=== PATIENT | male | born 1985 | race Caucasian/White ===

== ENCOUNTER 2017-09-22 14:34 | Observation (INO) | payer OTHER ==
--- NOTE | 2017-09-22 15:58 | PDOC ---
History of Present Illness - General Chief Complaint: Chest Pain Stated Complaint: CHEST PAIN Time Seen by Provider: 09/22/17 15:33 History Source: Patient - History of Present Illness Initial Comments: 09/22/17 16:47 32M with hx of annual chest pain presents with left sided chest pain, non radiating, feels like a needle since last night. Also complains of randomly occurring palpitation. Family friend with him, Reports that patient's mother at 30 of myocardial infarction. No insurance so no PCP, no facing slitter. Never had stress test or echo done 09/22/17 17:20 09/22/17 17:28 Past History - Past Medical History Allergies/Adverse Reactions: Allergies Allergy/AdvReac Type Severity Reaction Status Date / Time No Known Allergies Allergy Verified 04/06/14 14:19 Home Medications: Ambulatory Orders No Home Medications 0 dose .ROUTE UTDICT 04/06/14 Cardiac Disorders: Yes (Mother (heart related) @ 33 y/o) COPD: No Thyroid Disease: No - Suicide/Smoking/Psychosocial Hx Smoking History: Never smoked Have you smoked in the past 12 months: No Hx Alcohol Use: No Substance Use Type: None Review of Systems - Review of Systems Able to Perform ROS?: Yes Is the patient limited Burkinan proficient: No Constitutional: No: Symptoms Reported HEENTM: No: Symptoms Reported Respiratory: No: Symptoms reported Cardiac (ROS): Yes: Chest Pain, Palpitations, Chest Tightness ABD/GI: No: Symptoms Reported : No: Symptoms Reported Musculoskeletal: No: Symptoms Reported Integumentary: No: Symptoms Reported Neurological: No: Symptoms reported All Other Systems: Reviewed and Negative *Physical Exam - Vital Signs Last Vital Signs Temp Pulse Resp BP Pulse Ox 98 F 60 18 112/72 98 09/22/17 14:44 09/22/17 17:23 09/22/17 17:23 09/22/17 17:23 09/22/17 17:23 - Physical Exam General Appearance: Yes: Nourished, Appropriately Dressed, Obese. No: Apparent Distress HEENT: positive: EOMI, KAMRAN, Normal ENT Inspection Neck: positive: Trachea midline. negative: Tender Respiratory/Chest: positive: Lungs Clear, Normal Breath Sounds. negative: Chest Tender Cardiovascular: positive: Regular Rhythm, Regular Rate, S1, S2 Gastrointestinal/Abdominal: positive: Normal Bowel Sounds, Soft. negative: Organomegaly Musculoskeletal: positive: Normal Inspection Extremity: positive: Normal Capillary Refill Integumentary: positive: Normal Color, Dry, Warm Neurologic: positive: Fully Oriented, Alert, Normal Mood/Affect, Normal Response , Motor Strength 5/5 Heart Score/ECG Review - History History: Highly suspicious - Electrocardiogram EKG: Normal - Age Age: </= 45 - Risk Factors Risk Factors Heart Score: Yes Positive family hx of cardiac disease, Yes Hx Obesity Based on the list above the patient has:: 1-2 risk factors - Troponin Troponin: </= normal limit - Score Heart Score - Total: 3 ED Treatment Course - LABORATORY CBC & Chemistry Diagram: 09/22/17 15:58 09/22/17 15:58 - ADDITIONAL ORDERS Additional order review: Laboratory Results 09/22/17 09/22/17 15:58 15:58 PT with INR 11.40 INR 1.01 PTT (Actin FS) 34.1 Sodium 140 Potassium 4.0 Chloride 106 Carbon Dioxide 25 Anion Gap 9 BUN 18 D Creatinine 1.0 Creat Clearance w eGFR > 60 Random Glucose 106 D Calcium 8.2 L Total Bilirubin 0.4 D AST 16 ALT 39 Alkaline Phosphatase 82 Creatine Kinase 165 Creatine Kinase Index 0.6 CK-MB (CK-2) < 1.000 Troponin I < 0.02 Total Protein 6.9 Albumin 3.5 09/22/17 15:58 RBC 5.00 MCV 85.4 MCHC 34.1 RDW 12.9 MPV 9.3 Neutrophils % 60.2 Lymphocytes % 30.0 Monocytes % 7.8 Eosinophils % 1.7 Basophils % 0.3 - RADIOLOGY Radiology Studies Ordered: Category Date Time Status CHEST PA & LAT [RAD] Stat Radiology 09/22/17 15:57 Completed Medical Decision Making - Medical Decision Making 09/22/17 17:31 32M with chest pain and family hx of mother who of NC at age 30. EKG: sinus rhythm, normal EKG Cardiac enzymes negative However due to the very suspicious family history, this patient would benefit from an echocardiogram (to r/o HOCM), stress test, Holter monitor placement... Dr. Silverio consulted and Patient admitted to tele-obs under Dr. Spencer. *DC/Admit/Observation/Transfer Diagnosis at time of Disposition: Palpitation, Chest pain - Discharge Dispostion Condition at time of disposition: Stable Admit: Yes Decision to Admit order Date/Time: Decision to Admit Order Category Date Time Status Decision to Admit to Hospital Routine Admission 09/22/17 16:57 Active - Referrals - Patient Instructions - Post Discharge Activity
[2017-09-22 16:28] LABS: BASOPHIL 0.3 % (0-2.0); EOSINOPHIL 1.7 % (0-4.5); MCH 29.1 pg (25.7-33.7); MCHC 34.1 g/dl (32.0-35.9); MEAN CELL VOLUME 85.4 fl (80-96); MEAN PLT VOLUME 9.3 fl (7.5-11.1); NEUTROPHILS 60.2 % (42.8-82.8); PLATELET COUNT 182 K/MM3 (134-434); RDW 12.9 % (11.9-15.9); WHITE BLOOD COUNT 7.6 K/mm3 (4.0-10.0)
[2017-09-22 16:35] LABS: INR 1.01 (0.82-1.09); PROTHROMBIN TIME (PATIENT) 11.4 SEC (9.98-11.88)
[2017-09-22 16:37] LABS: ACTIVATED PTT 34.1 SECONDS (26.9-34.4)
[2017-09-22 16:41] LABS: ALBUMIN 3.5 g/dl (3.4-5.0); ANION GAP 9 (8-16); CALCIUM 8.2 mg/dL (8.5-10.1); CO2 25 mmol/L (21-32); GLUCOSE,RANDOM 106 mg/dL (74-106); SGOT/AST 16 U/L (15-37); SGPT/ALT 39 U/L (12-78)
--- NOTE | 2017-09-22 16:43 | PDOC ---
Attending Attestation - Resident Resident Name: Wallace Beltran - ED Attending Attestation I have performed the following: I have examined & evaluated the patient, The case was reviewed & discussed with the resident, I agree w/resident's findings & plan, Exceptions are as noted - Medical Decision Making 09/22/17 16:39 Vital Signs Temp Pulse Resp BP Pulse Ox 98 F 73 18 145/73 99 09/22/17 14:44 09/22/17 14:44 09/22/17 14:44 09/22/17 14:44 09/22/17 14:44 32 year old male no past medical history presents with chest pressure. States midsternal chest pressure, at times exertional, with associated SOB. Never had stress test as he does not have a doctor. States that his mother suddenly from an [place]. Will most certainly need to [facility]. Chest xray, labs, troponin. Aspirin. Dr. Beltran had consulted cardiology Dr. Juan Silverio. Admit <Riley Weller - Last Filed: 09/22/17 16:44> - HPI HPI: 09/22/17 16:46 32 year old male, with no significant past medical history, who presents to the emergency room complaining of 3 days of midsternal, nonradiating chest pressure that is nonexertional . He also reports palpitations. He notes that his mother from a heart attack when she was 33 years old. - Physicial Exam PE: 09/22/17 16:52 GENERAL: Awake, alert, and fully oriented, in no acute distress HEAD: No signs of trauma EYES: PERRLA, EOMI, sclera anicteric, conjunctiva clear ENT: Auricles normal inspection, hearing grossly normal, nares patent, oropharynx clear without exudates. Moist mucosa NECK: Normal ROM, supple, no lymphadenopathy, JVD, or masses LUNGS: Breath sounds equal, clear to auscultation bilaterally. No wheezes, and no crackles HEART: Regular rate and rhythm, normal S1 and S2, no murmurs, rubs or gallops ABDOMEN: Soft, nontender, normoactive bowel sounds. No guarding, no rebound. No masses EXTREMITIES: Normal range of motion, no edema. No clubbing or cyanosis. No cords, erythema, or tenderness NEUROLOGICAL: Cranial nerves II through XII grossly intact. Normal speech, normal gait SKIN: Warm, Dry, normal turgor, no rashes or lesions noted. <Yady Haddad - Last Filed: 09/22/17 16:54> Heart Score/ECG Review - History History: Moderately suspicious - Electrocardiogram EKG: Normal - Age Age: </= 45 - Risk Factors Risk Factors Heart Score: Yes Positive family hx of cardiac disease Based on the list above the patient has:: 1-2 risk factors #1 09/22/17 16:44 NSR 63, no std/dyana, QTC 390s, normal axis, normal intervals <Riley Weller - Last Filed: 09/22/17 16:44>
[2017-09-22 16:45] LABS: ALK PHOS 82 U/L (45-117); BILIRUBIN,TOTAL 0.4 mg/dL (0.2-1.0); CPK 165 IU/L (39-308); TOT PROT 6.9 g/dl (6.4-8.2); TROPONIN I < 0.02 ng/ml (0.00-0.05)
--- NOTE | 2017-09-22 18:06 | HP ---
Admitting History and Physical - Primary Care Physician PCP: Drew Spencer - Admission History of Present Illness: 32 year old male no past medical history presents with chest pressure. States midsternal chest pressure, at times exertional, with associated SOB. Never had stress test as he does not have a doctor. States that his mother suddenly from an [place]. - Past Surgical History Past Surgical History: Yes: None - Smoking History Smoking history: Never smoked Have you smoked in the past 12 months: No - Alcohol/Substance Use Hx Alcohol Use: No History of Substance Use: reports: None - Social History ADL: Independent History of Recent Travel: No Home Medications - Allergies Allergies/Adverse Reactions: Allergies Allergy/AdvReac Type Severity Reaction Status Date / Time No Known Allergies Allergy Verified 04/06/14 14:19 - Home Medications Home Medications: Ambulatory Orders No Home Medications 0 dose .ROUTE UTDICT 04/06/14 Family Disease History - Family Disease History Family Disease History: Heart Disease: Mother (SCD/ND at age 33), CA: Father ( Lung Ca ) Physical Examination Vital Signs: Vital Signs Temperature 98 F 09/22/17 14:44 Pulse Rate 60 09/22/17 17:23 Respiratory Rate 18 09/22/17 17:23 Blood Pressure 112/72 09/22/17 17:23 O2 Sat by Pulse Oximetry (%) 98 09/22/17 17:23 Constitutional: Yes: No Distress HENT: Yes: Atraumatic Neck: Yes: Supple Cardiovascular: Yes: Regular Rate and Rhythm Respiratory: Yes: CTA Bilaterally Gastrointestinal: Yes: Normal Bowel Sounds Extremities: Yes: WNL Neurological: Yes: Alert, Oriented Labs: CBC, BMP 09/22/17 15:58 09/22/17 15:58 Problem List - Problems (1) Chest pain Assessment/Plan: tele monitoring fu cardiac profile cardiology consult Code(s): R07.9 - CHEST PAIN, UNSPECIFIED (2) Palpitation Assessment/Plan: better now Code(s): R00.2 - PALPITATIONS Assessment/Plan Laboratory Tests 09/22/17 09/22/17 09/22/17 15:58 15:58 15:58 WBC 7.6 RBC 5.00 Hgb 14.5 Hct 42.7 MCV 85.4 MCH 29.1 MCHC 34.1 RDW 12.9 Plt Count 182 MPV 9.3 Neutrophils % 60.2 Lymphocytes % 30.0 Monocytes % 7.8 Eosinophils % 1.7 Basophils % 0.3 PT with INR 11.40 INR 1.01 PTT (Actin FS) 34.1 Sodium 140 Potassium 4.0 Chloride 106 Carbon Dioxide 25 Anion Gap 9 BUN 18 D Creatinine 1.0 Creat Clearance w eGFR > 60 Random Glucose 106 D Calcium 8.2 L Total Bilirubin 0.4 D AST 16 ALT 39 Alkaline Phosphatase 82 Creatine Kinase 165 Creatine Kinase Index 0.6 CK-MB (CK-2) < 1.000 Troponin I < 0.02 Total Protein 6.9 Albumin 3.5 Active Medications Generic Name Dose Route Start Last Admin Trade Name Freq PRN Reason Stop Dose Admin Acetaminophen 650 mg 09/22/17 18:07 09/22/17 18:18 Tylenol - PO 650 mg Q6H PRN Administration FEVER OR PAIN
[2017-09-22] MEDS ORDERED: ACETAMINOPHEN 325 MG TABLET (FP) PO PRN (18:07)
[2017-09-22] MEDS ORDERED: ACETAMINOPHEN 325 MG TABLET (FP) ONE (18:13)
[2017-09-22 20:06] LABS: CPK 153 IU/L (39-308); TROPONIN I < 0.02 ng/ml (0.00-0.05)
--- NOTE | 2017-09-23 10:28 | EKG ---
Test Reason : Blood Pressure : / mmHG Vent. Rate : 063 BPM Atrial Rate : 063 BPM P-R Int : 152 ms QRS Dur : 114 ms QT Int : 382 ms P-R-T Axes : 068 084 034 degrees QTc Int : 390 ms NORMAL SINUS RHYTHM NORMAL ECG WHEN COMPARED WITH ECG OF 23-SEP-2016 19:55, NO SIGNIFICANT CHANGE WAS FOUND Confirmed by MARCO ANTONIO ALMARAZ MD ([id number]) on 09/23/2017 10:28:10 AM Referred By: Confirmed By:MARCO ANTONIO ALMARAZ MD
--- NOTE | 2017-09-23 11:10 | CON.CARD ---
Consult Consult Specialty:: Cardiology Referred by:: Dr. Spencer Reason for Consultation:: Cardiac evaluation - History of Present Illness Chief Complaint: Chest pain History of Present Illness: Patient is a 32 year old male who hails from [employer] with no significant PMH now presents with mid sternal and left sided chest discomfort described as tightness. He also complains of palpitations. He denies shortness of breath. He denies paroxysmal nocturnal dyspnea or orthopnea. He denies fever or chills. He denies headache or lightheadedness. He denies nausea, vomiting, diarrhea or abdominal pain. Cardiology consultation was called for further evaluation. - History Source History Provided By: Patient, Medical Record Limitations to Obtaining History: No Limitations - Past Surgical History Past Surgical History: Yes: None - Alcohol/Substance Use Hx Alcohol Use: No History of Substance Use: reports: None - Smoking History Smoking history: Never smoked Have you smoked in the past 12 months: No - Social History ADL: Independent History of Recent Travel: No Home Medications - Allergies Allergies/Adverse Reactions: Allergies Allergy/AdvReac Type Severity Reaction Status Date / Time No Known Allergies Allergy Verified 04/06/14 14:19 - Home Medications Home Medications: Ambulatory Orders No Home Medications 0 dose .ROUTE UTDICT 04/06/14 Family Disease History - Family Disease History Family Disease History: Heart Disease: Mother (SCD/CO at age 33), CA: Father ( Lung Ca ) Review of Systems - Review of Systems Constitutional: denies: Chills, Fever Cardiovascular: reports: Chest Pain, Palpitations. denies: Shortness of Breath Respiratory: denies: Cough, Hemoptysis, Orthopnea, PND, SOB, SOB on Exertion Gastrointestinal: denies: Abdominal Pain, Constipation, Diarrhea, Melena, Nausea , Rectal Bleeding, Vomiting Genitourinary: denies: Dysuria Musculoskeletal: denies: Back Pain, Joint Pain Neurological: denies: Dizziness, Headache, Seizure, Syncope Vital Signs: Vital Signs Temperature 98.1 F 09/23/17 06:17 Pulse Rate 54 L 09/23/17 06:17 Respiratory Rate 17 09/23/17 06:17 Blood Pressure 112/62 09/23/17 06:17 O2 Sat by Pulse Oximetry (%) 98 09/23/17 06:17 Neck: Yes: Supple Respiratory: Yes: CTA Bilaterally Gastrointestinal: Yes: Normal Bowel Sounds, Soft. No: Tenderness Cardiovascular: Yes: Regular Rate and Rhythm JVD: No Carotid Bruit: No PMI: Non-Displaced Heart Sounds: Yes: S1, S2 Murmur: No: Systolic Murmur, Diastolic Murmur Edema: No - Other Data Labs, Other Data: CBC, BMP 09/22/17 15:58 09/22/17 15:58 INR, PTT INR 1.01 (0.82-1.09) 09/22/17 15:58 Troponin, BNP 09/22/17 09/22/17 15:58 19:37 Troponin I < 0.02 < 0.02 Laboratory Results - last 24 hr 09/22/17 09/22/17 09/22/17 15:58 15:58 15:58 WBC 7.6 RBC 5.00 Hgb 14.5 Hct 42.7 MCV 85.4 MCH 29.1 MCHC 34.1 RDW 12.9 Plt Count 182 MPV 9.3 Neutrophils % 60.2 Lymphocytes % 30.0 Monocytes % 7.8 Eosinophils % 1.7 Basophils % 0.3 PT with INR 11.40 INR 1.01 PTT (Actin FS) 34.1 Sodium 140 Potassium 4.0 Chloride 106 Carbon Dioxide 25 Anion Gap 9 BUN 18 D Creatinine 1.0 Creat Clearance w eGFR > 60 Random Glucose 106 D Calcium 8.2 L Total Bilirubin 0.4 D AST 16 ALT 39 Alkaline Phosphatase 82 Creatine Kinase 165 Creatine Kinase Index 0.6 CK-MB (CK-2) < 1.000 Troponin I < 0.02 Total Protein 6.9 Albumin 3.5 09/22/17 19:37 WBC RBC Hgb Hct MCV MCH MCHC RDW Plt Count MPV Neutrophils % Lymphocytes % Monocytes % Eosinophils % Basophils % PT with INR INR PTT (Actin FS) Sodium Potassium Chloride Carbon Dioxide Anion Gap BUN Creatinine Creat Clearance w eGFR Random Glucose Calcium Total Bilirubin AST ALT Alkaline Phosphatase Creatine Kinase 153 Creatine Kinase Index 0.6 CK-MB (CK-2) < 1.000 Troponin I < 0.02 Total Protein Albumin Echo: Pending Imaging - Results Chest X-ray: Report Reviewed (Unremarkable) EKG: Report Reviewed Problem List - Problems (1) Family history of sudden cardiac (SCD) Code(s): Z82.41 - FAMILY HISTORY OF SUDDEN CARDIAC (2) Chest pain Code(s): R07.9 - CHEST PAIN, UNSPECIFIED Qualifiers: Chest pain type: unspecified Qualified Code(s): R07.9 - Chest pain, unspecified (3) Palpitation Code(s): R00.2 - PALPITATIONS Assessment/Plan 1. Chest pain syndrome, etiology to be determined 2. Family history of SCD/possible CO PLAN: 1. Trend cardiac enzyme so far negative 2. Transthoracic echocardiography to asses LV/RV and valvular function 3. Exercise treadmill stress testing If above testings are negative, may discharge home Further plans are to follow Juan Silverio MD
[2017-09-23 16:22] VITALS: BMI 31.0
[2017-09-23 18:33] VITALS: TEMP 99.6
--- NOTE | 2017-09-23 19:11 | PN ---
Progress Note, Physician - Current Medication List Current Medications: Active Medications Acetaminophen (Tylenol -) 650 mg PO Q6H PRN PRN Reason: FEVER OR PAIN Last Admin: 09/22/17 18:18 Dose: 650 mg - Objective Vital Signs: Vital Signs Temperature 99.6 F 09/23/17 18:33 Pulse Rate 78 09/23/17 18:33 Respiratory Rate 18 09/23/17 18:33 Blood Pressure 126/67 09/23/17 18:33 O2 Sat by Pulse Oximetry (%) 99 09/23/17 18:33 Labs: CBC, BMP 09/22/17 15:58 09/22/17 15:58 INR, PTT INR 1.01 (0.82-1.09) 09/22/17 15:58 Problem List - Problems (1) Chest pain Code(s): R07.9 - CHEST PAIN, UNSPECIFIED Qualifiers: Chest pain type: unspecified Qualified Code(s): R07.9 - Chest pain, unspecified (2) Palpitation Code(s): R00.2 - PALPITATIONS
--- NOTE | 2017-09-23 20:05 | DS ---
Physical Examination Vital Signs: Vital Signs Temperature 99.6 F 09/23/17 18:33 Pulse Rate 78 09/23/17 18:33 Respiratory Rate 18 09/23/17 18:33 Blood Pressure 126/67 09/23/17 18:33 O2 Sat by Pulse Oximetry (%) 99 09/23/17 18:33 Constitutional: Yes: Anxious HENT: Yes: Atraumatic Neck: Yes: Supple Cardiovascular: Yes: Regular Rate and Rhythm Respiratory: Yes: CTA Bilaterally Gastrointestinal: Yes: Normal Bowel Sounds Extremities: Yes: WNL Neurological: Yes: Alert, Oriented Labs: CBC, BMP 09/22/17 15:58 09/22/17 15:58 Discharge Summary Reason For Visit: CHEST PAIN,PALPITATIONS Current Active Problems Chest pain (Acute) Family history of sudden cardiac (SCD) (Acute) Palpitation (Acute) Condition: Stable - Instructions - Home Medications Comprehensive Discharge Medication List: Ambulatory Orders No Home Medications 0 dose .ROUTE UTDICT 04/06/14 stress test negative troponins negative pt need to fu pmd/cardiology as out patient for further work up
[2017-09-23 20:06] VITALS: BP 143/70; PULSE 75
--- NOTE | 2017-09-25 09:22 | TRE ---
Protocol Name : SUSIE Max Work Load (METS*10) : 121 Time In Exercise Phase : 00:10:15 Max. Systolic BP : 165 mmHg Max Diastolic BP : 96 mmHg Max Heart Rate : 162 BPM Max Predicted Heart Rate : 189 BPM Attending Physician : DR. ROMERO Reason For Termination : Target Heart Rate Achieved Reason for Test : CHEST PAIN Stress Protocol : SUSIE Rest HR : 73 BPM PeakEx METs : 12.1 METS Recovery ECG Response (OLD) : Diagnosis : Normal stress test Fiarly good exercise tolerance for age. No ST-T abnormailites or arrhythmias on EKG. Pt was asymptomatic throughout the examination. Confirmed by ALVINO ROMERO MD ([id number]) on 09/25/2017 9:21:57 AM
== END 2017-09-23 20:06 | disposition home or self-care (01) ==
LOC: JER 14:34 → JERBED 16:37
PROVIDERS: ADMIT Internal Medicine; ATTEND Internal Medicine
DX: R07.9 Chest pain, unspecified (principal); R00.2 Palpitations; Z82.41 Family history of sudden cardiac death
CPT/HCPCS: 36415; 71020-TC; 80053; 82550; 82553; 84484; 85025; 85610; 85730; 93005; 93010; 93017; 93018; 93306-TC; 99285-25; G0378

== ENCOUNTER 2018-10-02 13:19 | Emergency (ER) | payer OTHER ==
[2018-10-02 13:55] VITALS: BP 126/62; PULSE 65; TEMP 98.1; BMI 30.7
[2018-10-02] MEDS ORDERED: LIDOCAINE VISCOUS 2% ORAL/TOP 20 ML UNIT-DOSE CUP MM ONE (14:27)
[2018-10-02] MEDS ORDERED: DICYCLOMINE HCL 20 MG TABLET PO ONE (14:27)
[2018-10-02] MEDS ORDERED: MAG HYDROX/AL HYDROX/SIMETH -MYLANTA- ORAL SUSPENSION PO ONE (14:27)
--- NOTE | 2018-10-02 14:34 | PDOC ---
History of Present Illness - General Chief Complaint: Constipation Stated Complaint: RT SIDE PAIN Time Seen by Provider: 10/02/18 14:17 History Source: Patient Exam Limitations: No Limitations - History of Present Illness Travel History: No Initial Comments: 10/02/18 14:39 HISTORY OF PRESENT ILLNESS: 33-year-old male without significant medical history presents emergency department for evaluation of 2 weeks of left upper quadrant burning. He states the pain is 5/5 and is been consistent without any change in severity over the 2 weeks. He denies any aggravating or alleviating factors. Patient reports he has not been evaluated prior to this visit and has not tried taking any [id number] therapies. No recent travel or sick contacts. PAST MEDICAL HISTORY: Denies past medical history SURGICAL HISTORY: Denies ALLERGIES: No known drug allergies REVIEW OF SYSTEMS General/Constitutional: Denies fever or chills. Denies weakness, weight change. HEENT: Denies change in vision. Denies ear pain or discharge. Denies sore throat. Cardiovascular: Denies chest pain or shortness of breath. Respiratory: Denies cough, wheezing, or hemoptysis. Gastrointestinal: +LUQ burning. Denies nausea, vomiting, diarrhea or constipation. Denies rectal bleeding. Genitourinary: Denies dysuria, frequency, or change in urination. Musculoskeletal: Denies joint or muscle swelling or pain. Denies neck or back pain. Skin and breasts: Denies rash or easy bruising. Neurologic: Denies headache, vertigo, loss of consciousness, or loss of sensation. Psychiatric: Denies depression or anxiety. Endocrine: Denies increased thirst. Denies abnormal weight change. Hematologic/Lymphatic: Denies anemia, easy bleeding, or history of blood clots. Allergic/Immunologic: Denies hives or skin allergy. Denies latex allergy. PHYSICAL EXAM General Appearance: Well-appearing, appropriately dressed. No apparent distress , no intoxication. HEENT: EOMI, PERRLA, normal ENT inspection, normal voice, TMs normal, pharynx normal. No conjunctival pallor. No photophobia, scleral icterus. Neck: Supple. Trachea midline. No tenderness, rigidity, carotid bruit, stridor , lymphadenopathy, or thyromegaly. Respiratory/Chest: Lungs CTAB. No shortness of breath, chest tenderness, respiratory distress, accessory muscle use. No crackles, rales, rhonchi, stridor , wheezing, dullness Cardiovascular: RRR. S1, S2. No JVD, murmur, bradycardia, tachycardia. Vascular Pulses: Dorsalis-Pedis (R): 2+, Dorsalis-Pedis (L): 2+ Gastrointestinal/Abdominal: Normal bowel sounds. Abdomen soft, non-distended. No tenderness or rebound tenderness. No organomegaly, pulsatile mass, guarding, hernia, hepatomegaly, splenomegaly. Past History - Past Medical History Allergies/Adverse Reactions: Allergies Allergy/AdvReac Type Severity Reaction Status Date / Time No Known Allergies Allergy Verified 10/02/18 13:52 Home Medications: Ambulatory Orders No Home Medications 0 dose .ROUTE UTDICT 04/06/14 Esomeprazole Magnesium [Nexium 24Hr] 20 mg PO DAILY #30 tablet. 10/02/18 Cardiac Disorders: Yes (Mother (heart related) @ 33 y/o) COPD: No Thyroid Disease: No - Immunization History Immunization Up to Date: Yes - Suicide/Smoking/Psychosocial Hx Smoking History: Never smoked Have you smoked in the past 12 months: No Hx Alcohol Use: No Drug/Substance Use Hx: No Substance Use Type: None *Physical Exam - Vital Signs Last Vital Signs Temp Pulse Resp BP Pulse Ox 98.1 F 65 18 126/62 99 10/02/18 13:53 10/02/18 13:53 10/02/18 13:53 10/02/18 13:53 10/02/18 13:53 Moderate Sedation - Procedure Monitoring Vital Signs: Procedure Monitoring Vital Signs Temperature 98.1 F 10/02/18 13:53 Pulse Rate 65 10/02/18 13:53 Respiratory Rate 18 10/02/18 13:53 Blood Pressure 126/62 10/02/18 13:53 O2 Sat by Pulse Oximetry (%) 99 10/02/18 13:53 ED Treatment Course - LABORATORY CBC & Chemistry Diagram: 10/02/18 14:30 10/02/18 14:20 Medical Decision Making - Medical Decision Making 10/02/18 15:01 A/P: 33-year-old male with left upper quadrant abdominal burning Physical exam is within normal limits No splenomegaly noted DDx: GERD, gastritis, pancreatitis, hiatal hernia Labs, urine, Bentyl, Viscous Lidocaine, Maalox, reassess 10/02/18 15:45 Laboratory testing is unremarkable. No evidence of urinary tract infection. Patient feels better after receiving GI cocktail. I will discharge the patient home with referral for primary doctor to continue evaluation. I'll give the patient prescription for PPI with instructions to take Mylanta or Maalox as needed for upper abdominal burning. *DC/Admit/Observation/Transfer Diagnosis at time of Disposition: Gastritis Qualifiers: Gastritis type: unspecified gastritis Chronicity: acute Gastritis bleeding: presence of bleeding unspecified Qualified Code(s): K29.00 - Acute gastritis without bleeding - Discharge Dispostion Disposition: HOME Condition at time of disposition: Stable Decision to Admit order: No - Prescriptions Prescriptions: Esomeprazole Magnesium [Nexium 24Hr] 20 mg PO DAILY #30 tablet.dr - Referrals Referrals: Hany Cruz MD [Staff Physician] - - Patient Instructions Additional Instructions: Take Nexium 20mg daily. Take Maalox as needed for pain. You've been given a referral for primary doctor. Please call to make an appointment for reevaluation within the next 2 weeks Return to emergency department for any concerns. - Post Discharge Activity
[2018-10-02] MEDS ORDERED: LIDOCAINE VISCOUS 2% ORAL/TOP 20 ML UNIT-DOSE CUP ONE (14:39)
[2018-10-02] MEDS ORDERED: DICYCLOMINE HCL 10 MG CAPSULE ONE (14:39)
[2018-10-02] MEDS ORDERED: MAG HYDROX/AL HYDROX/SIMETH 30 ML UNIT-DOSE CUP ONE (14:42)
[2018-10-02 14:54] LABS: BASO % 0.5 % (0-2.0); EOS % 1.8 % (0-4.5); HEMATOCRIT 45.8 % (35.4-49); LYMPH % 36.4 % (8-40); MCH 28.1 pg (25.7-33.7); MCHC 32.7 g/dl (32.0-35.9); MEAN PLT VOLUME 9.5 fl (7.5-11.1); MONO % 7.4 % (3.8-10.2); NEUT % 53.9 % (42.8-82.8); PLATELET COUNT 175 K/MM3 (134-434); RBC 5.33 M/mm3 (4.00-5.60); RDW 13.1 % (11.9-15.9); WHITE BLOOD COUNT 5.8 K/mm3 (4.0-10.0)
[2018-10-02 15:11] LABS: URINE APPEARANCE CLEAR; URINE BILIRUBIN NEGATIVE (<2.0 mg/dL); URINE COLOR YELLOW; URINE GLUCOSE (UA) NEGATIVE (NEGATIVE); URINE KETONE NEGATIVE (NEGATIVE); URINE LEUK ESTERASE NEGATIVE (NEGATIVE); URINE NITRITE NEGATIVE (NEGATIVE); URINE PROTEIN NEGATIVE (NEGATIVE); URINE UROBILINOGEN NEGATIVE mg/dL (0.2-1.0)
[2018-10-02 15:28] LABS: ALBUMIN 3.9 g/dl (3.4-5.0); ALK PHOS 81 U/L (45-117); ANION GAP 9 MMOL/L (8-16); BILIRUBIN,TOTAL 0.5 mg/dL (0.2-1); BLOOD UREA NITROGEN 18 mg/dL (7-18); CALCIUM 8.6 mg/dL (8.5-10.1); CHLORIDE 108 mmol/L (98-107); CO2 24 mmol/L (21-32); CREATININE 1.1 mg/dL (0.55-1.3); GLUCOSE,RANDOM 112 mg/dL (74-106); LIPASE 230 U/L (73-393); SGOT/AST 21 U/L (15-37); SGPT/ALT 50 U/L (13-61); SODIUM 140 mmol/L (136-145); TOT PROT 7.3 g/dl (6.4-8.2)
== END 2018-10-02 15:55 | disposition home or self-care (01) ==
LOC: JERFT 13:19
DX: K29.00 Acute gastritis without bleeding (principal)
CPT/HCPCS: 36415; 80053; 81003; 83690; 85025; 87086; 99281-25

== ENCOUNTER 2019-07-15 07:15 | Emergency (ER) | payer OTHER ==
[2019-07-15 07:27] VITALS: BP 125/64; PULSE 59; TEMP 98.2; BMI 29.5
--- NOTE | 2019-07-15 09:01 | PDOC ---
History of Present Illness - General Chief Complaint: Chest Pain Stated Complaint: CHEST PAIN Time Seen by Provider: 07/15/19 07:47 History Source: Patient Exam Limitations: No Limitations Past History - Past Medical History Allergies/Adverse Reactions: Allergies Allergy/AdvReac Type Severity Reaction Status Date / Time No Known Allergies Allergy Verified 07/15/19 07:24 Home Medications: Ambulatory Orders No Home Medications 0 dose .ROUTE UTDICT 04/06/14 Esomeprazole Magnesium [Nexium 24Hr] 20 mg PO DAILY #30 tablet. 10/02/18 Cardiac Disorders: Yes (Mother (heart related) @ 33 y/o) COPD: No Thyroid Disease: No - Immunization History Immunization Up to Date: Yes - Suicide/Smoking/Psychosocial Hx Smoking History: Never smoked Have you smoked in the past 12 months: No Information on smoking cessation initiated: No Hx Alcohol Use: No Drug/Substance Use Hx: No Substance Use Type: None *Physical Exam - Vital Signs Last Vital Signs Temp Pulse Resp BP Pulse Ox 98.2 F 59 L 17 125/64 98 07/15/19 07:24 07/15/19 07:24 07/15/19 07:24 07/15/19 07:24 07/15/19 07:24 - Physical Exam General Appearance: No: Apparent Distress Respiratory/Chest: positive: Lungs Clear, Normal Breath Sounds. negative: Chest Tender, Respiratory Distress Cardiovascular: positive: Regular Rhythm, Regular Rate, S1, S2. negative: Murmur Gastrointestinal/Abdominal: positive: Normal Bowel Sounds, Soft. negative: Tender, Distended, Guarding, Rebound Extremity: negative: Pedal Edema, Swelling, Calf Tenderness Neurologic: positive: Alert, Normal Mood/Affect Heart Score/ECG Review - History History: Slightly suspicious - Electrocardiogram EKG: Normal - Age Age: </= 45 - Risk Factors Based on the list above the patient has:: No risk factors known - Troponin Troponin: </= normal limit - Score Heart Score - Total: 0 ED Treatment Course - LABORATORY CBC & Chemistry Diagram: 07/15/19 09:00 07/15/19 09:00 - ADDITIONAL ORDERS Additional order review: Laboratory Results 07/15/19 09:00 Sodium 140 Potassium 4.1 Chloride 109 H Carbon Dioxide 24 Anion Gap 7 L BUN 18.0 Creatinine 0.9 Est GFR (CKD-EPI)AfAm 130.52 Est GFR (CKD-EPI)NonAf 112.62 Random Glucose 90 Calcium 9.3 Total Bilirubin 0.6 AST 25 ALT 56 Alkaline Phosphatase 82 Troponin I < 0.02 Total Protein 7.5 Albumin 4.0 07/15/19 09:00 RBC 5.19 MCV 85.8 MCHC 33.8 RDW 13.0 MPV 9.5 Neutrophils % 60.6 Lymphocytes % 30.3 Monocytes % 7.4 Eosinophils % 1.5 Basophils % 0.2 - RADIOLOGY Radiology Studies Ordered: Category Date Time Status CHEST PA & LAT [RAD] Stat Radiology 07/15/19 08:05 Completed Medical Decision Making - Medical Decision Making 33 y/o M with no sig pmh presents with nonradiating substernal chest pressure/ tightness/sharpness x 4 days, constant in nature, along with palpitations and SOB. Mentions having similar complaints 2 years during which time he was admitted and had stress test done which was negative (09/23/17). Denies fever, URI sxs, cough, abd pain, vomiting, dizziness, LOC. Denies drug use. Denies smoking. Denies alcohol. ?FH of mother with heart disease (states she suddenly at age 33 but unclear cause) EKG: Sinus aline at 53 bpm, no ST-T changes R/O ACS; less suspicious for PNA, aortic dissection PERC negative so unlikely PE Plan: Labs, CXR 07/15/19 09:01 Labs unremarkable CXR negative Heart score 0 stable for dc 07/15/19 10:03 *DC/Admit/Observation/Transfer Diagnosis at time of Disposition: Chest pain Qualifiers: Chest pain type: unspecified Qualified Code(s): R07.9 - Chest pain, unspecified - Discharge Dispostion Disposition: HOME Condition at time of disposition: Stable Decision to Admit order: No - Referrals - Patient Instructions Printed Discharge Instructions: DI for Chest Pain Additional Instructions: Thank you for choosing [facility]. It was a pleasure taking care of you. Your labs and chest xray were unremarkable Please follow-up with your doctor in 2 days Return to the Emergency Department if your symptoms worsen or persist, you have fever, shortness of breath, chest pain, severe abdominal pain, vomiting or other concerning symptoms. - Post Discharge Activity
[2019-07-15 09:07] LABS: BASO % 0.2 % (0-2.0); EOS % 1.5 % (0-4.5); HEMATOCRIT 44.6 % (35.4-49); HEMOGLOBIN 15.1 GM/dL (11.7-16.9); LYMPH % 30.3 % (8-40); MCHC 33.8 g/dl (32.0-35.9); MEAN CELL VOLUME 85.8 fl (80-96); MEAN PLT VOLUME 9.5 fl (7.5-11.1); MONO % 7.4 % (3.8-10.2); NEUT % 60.6 % (42.8-82.8); PLATELET COUNT 188 K/MM3 (134-434); RBC 5.19 M/mm3 (4.00-5.60); WHITE BLOOD COUNT 6.3 K/mm3 (4.0-10.0)
[2019-07-15 09:34] LABS: ALK PHOS 82 U/L (45-117); ANION GAP 7 MMOL/L (8-16); BILIRUBIN,TOTAL 0.6 mg/dL (0.2-1); CALCIUM 9.3 mg/dL (8.5-10.1); CHLORIDE 109 mmol/L (98-107); CO2 24 mmol/L (21-32); CREATININE 0.9 mg/dL (0.55-1.3); GLUCOSE,RANDOM 90 mg/dL (74-106); POTASSIUM 4.1 mmol/L (3.5-5.1); SGOT/AST 25 U/L (15-37); SGPT/ALT 56 U/L (13-61); SODIUM 140 mmol/L (136-145); TOT PROT 7.5 g/dl (6.4-8.2)
--- NOTE | 2019-07-15 14:04 | EKG ---
Test Reason : Blood Pressure : / mmHG Vent. Rate : 053 BPM Atrial Rate : 053 BPM P-R Int : 162 ms QRS Dur : 114 ms QT Int : 420 ms P-R-T Axes : 065 082 045 degrees QTc Int : 394 ms SINUS BRADYCARDIA OTHERWISE NORMAL ECG WHEN COMPARED WITH ECG OF 22-SEP-2017 14:37, NO SIGNIFICANT CHANGE WAS FOUND Confirmed by SHELBY CAMACHO MD ([id number]) on 07/15/2019 2:04:26 PM Referred By: Confirmed By:SHELBY CAMACHO MD
== END 2019-07-15 10:05 | disposition home or self-care (01) ==
LOC: JER 07:15
DX: R07.9 Chest pain, unspecified (principal)
CPT/HCPCS: 36415; 71046-TC-FY; 80053; 84484; 85025; 93005; 93010; 99283-25

== ENCOUNTER 2019-09-13 10:46 | Emergency (ER) | payer OTHER ==
[2019-09-13 11:10] VITALS: BP 110/74; PULSE 73; TEMP 98.7; BMI 33.4
--- NOTE | 2019-09-13 12:16 | PDOC ---
History of Present Illness - General Chief Complaint: Cold Symptoms Stated Complaint: FEVER Time Seen by Provider: 09/13/19 11:35 - History of Present Illness Initial Comments: 09/13/19 12:16 34-year-old male without comorbidities presents for evaluation of fever and upper respiratory symptoms x3 days Past History - Past Medical History Allergies/Adverse Reactions: Allergies Allergy/AdvReac Type Severity Reaction Status Date / Time No Known Allergies Allergy Verified 09/13/19 11:50 Home Medications: Ambulatory Orders No Home Medications 0 dose .ROUTE UTDICT 04/06/14 Esomeprazole Magnesium [Nexium 24Hr] 20 mg PO DAILY #30 tablet. 10/02/18 Cardiac Disorders: Yes (Mother (heart related) @ 33 y/o) COPD: No Thyroid Disease: No - Immunization History Immunization Up to Date: Yes - Psycho Social/Smoking Cessation Hx Smoking History: Never smoked Have you smoked in the past 12 months: No Information on smoking cessation initiated: No Hx Alcohol Use: No Drug/Substance Use Hx: No Substance Use Type: None Review of Systems - Review of Systems Constitutional: Yes: Fever HEENTM: Yes: Nose Congestion Respiratory: Yes: Cough *Physical Exam - Vital Signs Last Vital Signs Temp Pulse Resp BP Pulse Ox 98.7 F 73 18 110/74 100 09/13/19 11:08 09/13/19 11:08 09/13/19 11:08 09/13/19 11:08 09/13/19 11:08 - Physical Exam Comments: 09/13/19 12:16 GENERAL: The patient is awake, alert, and fully oriented, in no acute distress. HEAD: Normal with no signs of trauma. EYES: sclera anicteric, conjunctiva clear. ENT: Ears normal NECK: Normal range of motion LUNGS: Breath sounds equal, clear to auscultation bilaterally. No wheezes, and no crackles. HEART: S1 and S2 without murmur, rub or gallop. ABDOMEN: Soft, nontender, normoactive bowel sounds. No guarding, no rebound. No masses. EXTREMITIES: Normal range of motion, no edema. No clubbing or cyanosis. No cords, erythema, or tenderness. NEUROLOGICAL: Cranial nerves II through XII grossly intact. Normal speech, normal gait. PSYCH: Normal mood, normal affect. SKIN: Warm, Dry, normal turgor, no rashes or lesions noted. Medical Decision Making - Medical Decision Making 09/13/19 13:08 Benign examination influenza negative most likely viral upper respiratory infection we will have patient follow-up with primary care physician at this point. No antibiotics necessary at this time. Discharge - Discharge Information Problems reviewed: Yes Clinical Impression/Diagnosis: Viral URI with cough Condition: Stable Disposition: HOME - Admission No - Follow up/Referral Referrals: Keren Nagy MD [Staff Physician] - - Patient Discharge Instructions Patient Printed Discharge Instructions: DI for Viral Upper Respiratory Infection -- Adult Additional Instructions: Tylenol and Motrin as directed for fever. Your influenza swab today was negative. Return to the emergency room for worsening symptoms. Without fail please follow-up with internal medicine to 3 days for further evaluation and treatment options. - Post Discharge Activity
== END 2019-09-13 13:37 | disposition home or self-care (01) ==
LOC: JERFT 10:46
DX: J06.9 Acute upper respiratory infection, unspecified (principal); B97.89 Other viral agents as the cause of diseases classified elsewhere
CPT/HCPCS: 87804; 99281-25

== ENCOUNTER 2020-10-19 22:32 | Emergency (ER) | payer OTHER ==
[2020-10-19 22:42] VITALS: BP 144/63; PULSE 66; TEMP 98.2; BMI 36.5
[2020-10-19] MEDS ORDERED: IBUPROFEN 600 MG TABLET (FP) PO ONE ×3 (22:58→23:16)
[2020-10-19] MEDS ORDERED: LIDOCAINE 5% TOPICAL PATCH TP ONE (22:58)
[2020-10-19] MEDS ORDERED: LIDOCAINE 5% TOPICAL PATCH ONE (23:14)
[2020-10-20] MEDS ORDERED: LIDOCAINE PATCH REMOVAL MC SCH (11:00)
== END 2020-10-20 00:10 | disposition home or self-care (01) ==
LOC: JER 22:32
DX: M25.512 Pain in left shoulder (principal)
CPT/HCPCS: 73000-TC-LT-FY; 99283-25

== ENCOUNTER 2021-03-07 12:32 | Emergency (ER) | payer OTHER ==
[2021-03-07 12:41] VITALS: BP 124/72; PULSE 84; TEMP 98.5; BMI 32.8
[2021-03-07] MEDS ORDERED: FAMOTIDINE 20 MG/50 ML IVPB 20 MG/50 ML MG IVPB ONE ×2 (13:43→13:54)
[2021-03-07] MEDS ORDERED: SODIUM CHLORIDE 0.9% 500 ML INFUS.BAG IV ONE (13:43)
[2021-03-07] MEDS ORDERED: MAG HYDROX/AL HYDROX/SIMETH 30 ML UNIT-DOSE CUP PO ONE (13:43)
[2021-03-07] MEDS ORDERED: MAG HYDROX/AL HYDROX/SIMETH 30 ML UNIT-DOSE CUP ONE (13:54)
[2021-03-07 14:38] LABS: BASO % 0.4 % (0-2.0); EOS % 1.9 % (0-4.5); HEMOGLOBIN 15.3 GM/dL (11.7-16.9); LYMPH % 37.7 % (8-40); MCH 29.2 pg (25.7-33.7); MCHC 34.7 g/dl (32.0-35.9); MEAN CELL VOLUME 84.1 fl (80-96); MEAN PLT VOLUME 9.6 fl (7.5-11.1); MONO % 7.3 % (3.8-10.2); NEUT % 52.7 % (42.8-82.8); PLATELET COUNT 210 K/MM3 (134-434); RBC 5.23 M/mm3 (4.00-5.60); RDW 13.2 % (11.9-15.9)
[2021-03-07 15:09] LABS: CHLORIDE 108 mmol/L (98-107); SODIUM 139 mmol/L (136-145)
[2021-03-07 15:12] LABS: CALCIUM 8.9 mg/dL (8.5-10.1)
[2021-03-07 15:13] LABS: ANION GAP 4 MMOL/L (8-16); BLOOD UREA NITROGEN 16.4 mg/dL (7-18); CO2 27 mmol/L (21-32); GLUCOSE,RANDOM 99 mg/dL (74-106)
[2021-03-07 15:16] LABS: SGOT/AST 22 U/L (15-37); SGPT/ALT 47 U/L (13-61)
[2021-03-07 15:17] LABS: BILIRUBIN,TOTAL 0.5 mg/dL (0.2-1); TOT PROT 7.7 g/dl (6.4-8.2)
[2021-03-07 15:19] LABS: ALK PHOS 94 U/L (45-117)
== END 2021-03-07 16:03 | disposition home or self-care (01) ==
LOC: JERFT 12:32
PROC: 3E033GC Introduction of Other Therapeutic Substance into Peripheral Vein, Percutaneous Approach (ICD-10-PCS; principal; 2021-03-07)
DX: R10.13 Epigastric pain (principal)
CPT/HCPCS: 36415; 80053; 84484; 85025; 93005; 93010; 99284-25

== ENCOUNTER 2023-04-15 08:22 | Emergency (ER) | payer SELFPAY ==
[2023-04-15 08:27] VITALS: BP 120/63; PULSE 61; RESP 20; TEMP 97.6; BMI 33.5
[2023-04-15] MEDS ORDERED: ACETAMINOPHEN 500 MG TABLET (FP) PO ONE (09:15)
[2023-04-15] MEDS ORDERED: ACETAMINOPHEN 500 MG TABLET (FP) ONE (09:35)
== END 2023-04-15 10:11 | disposition home or self-care (01) ==
LOC: JERFT 08:22
CPT/HCPCS: 73610-TC-RT-FY; 73630-TC-RT-FY; 99283-25

== ENCOUNTER 2023-07-03 10:53 | Emergency (ER) | payer OTHER ==
[2023-07-03 11:13] VITALS: BP 114/57; PULSE 79; RESP 18; TEMP 98.2; BMI 34.4
== END 2023-07-03 13:41 | disposition home or self-care (01) ==
LOC: JERFT 10:53
DX: M54.50 Low back pain, unspecified (principal); M54.2 Cervicalgia; S13.4XXA Sprain of ligaments of cervical spine, initial encounter; V89.2XXA Person injured in unspecified motor-vehicle accident, traffic, initial encounter; Y92.410 Unspecified street and highway as the place of occurrence of the external cause
CPT/HCPCS: 72050-TC-FY; 72100-TC-FY; 99283-25